=== PATIENT | female | born 1995 | race Caucasian/White ===

== ENCOUNTER 2017-12-24 14:17 | Inpatient (IN) | payer OTHER ==
[~2017-12-24] VITALS: Ht 154.9 cm; Wt 2.3 kg
[~2017-12-24 14:17] MED LIST: FOLIC ACID0.8 M1
[2017-12-24] MEDS ORDERED: PRENATAL TABLE1 EAC2 PO (15:42)
[2017-12-24] MEDS ORDERED: ZANTAC300 MG PO (15:42)
== END 2018-01-05 18:04 | DRG 765 ==
LOC: LDR 14:17 → OB/GYN 14:17
PROC: 4A1HXCZ Monitoring of Products of Conception, Cardiac Rate, External Approach (ICD-10-PCS; 2017-12-24)
PROC: 30233N1 Transfusion of Nonautologous Red Blood Cells into Peripheral Vein, Percutaneous Approach (ICD-10-PCS; 2017-12-28)
PROC: 4A033R1 Measurement of Arterial Saturation, Peripheral, Percutaneous Approach (ICD-10-PCS; 2018-01-02)
PROC: 10D00Z1 Extraction of Products of Conception, Low, Open Approach (ICD-10-PCS; principal; 2018-01-03)
DX: O30.033 Twin pregnancy, monochorionic/diamniotic, third trimester (principal); O60.14X2 Preterm labor third trimester with preterm delivery third trimester, fetus 2; O14.03 Mild to moderate pre-eclampsia, third trimester; O24.410 Gestational diabetes mellitus in pregnancy, diet controlled; O32.1XX2 Maternal care for breech presentation, fetus 2; D50.0 Iron deficiency anemia secondary to blood loss (chronic); O99.013 Anemia complicating pregnancy, third trimester; Z3A.34 34 weeks gestation of pregnancy; Z37.2 Twins, both liveborn